=== PATIENT | female | born 1945 | race American Indian/Alaskan Native ===

== ENCOUNTER 2018-09-29 12:50 | Outpatient (CLI) | payer MEDICARE ==
--- NOTE | 2018-09-29 14:57 | Ultrasound Report ---
ULTRASOUND-GUIDED NEEDLE CORE BIOPSY Left BREAST WITH CLIP PLACEMENT CLINICAL: Abnormal left mammogram. Left breast ultrasound demonstrated a small irregular mass in the 6:00 position, anterior depth, as well as abnormally enlarged lymph node in the axillary tail/axillar y region. FINDINGS: The procedure was explained to the patient and informed consent was obtained. Ultrasound demonstrated the previously identified mass in the 6:00 position, periareolar location, as well as enlarged axillary lymph node.. I marked the breast with a felt tip marker and a timeout was called. The skin was prepped with chlorh exidine and anesthetized with 1% lidocaine. Needle core biopsy was performed through small dermatotomy using ultrasound guidance, 2% lidocaine wi th epinephrine for deep anesthesia and a 14-gauge Achieve biopsy device. 3 cores were obtained and pl aced in formalin. A clip was deployed within the lesion. The patient tolerated the procedure well and there were no apparent convocations. Hemostasis was achi eved with minimal effort and a sterile dressing was applied. A post procedure mammogram demonstrated concordant clip deployment. She left the department in good c ondition and was given instructions for wound care and follow-up. IMPRESSION: Uncomplicated ultrasound guided needle core biopsy with clip placement left breast 6:00, periareolar location. Signer Name: Rachele Kay MD Signed: 09/29/2018 2:53 PM Workstation Name: [id number]
--- NOTE | 2018-09-29 15:02 | Mammography Report ---
POST PROCEDURE LEFT DIGITAL DIAGNOSTIC MAMMOGRAM WITH CAD, 09/29/2018 INDICATION: Patient is status post biopsy of a small mass in the left breast 6:00, anterior depth, as well as an enlarged lymph node in the left axillary tail/axillary region. TECHNIQUE: Digital left mammographic imaging was performed. COMPARISON: Prior mammogram, 09/06/2018 FINDINGS: Breast Density: There are scattered areas of fibroglandular density. There are 2 clips seen in the 6:00 position of the left breast, periareolar position. The 2 clips do correspond to the small nodule noted on recent mammogram. Additionally, there is a clip identified in an enlarged lymph node within the axillary tail region. IMPRESSION: Postprocedure mammogram for clip placement documents appropriate positioning of clips wit hin the periareolar mass at 6:00, as well as appropriate clip placement within the enlarged left axil eliceo lymph node. A "normal" or negative report should not discourage follow up or biopsy of a clinically significant f inding. A written summary of these findings will be mailed to the patient. The patient will be entered into a mammography reporting system which will generate a reminder letter for the patient's next appointmen t at the appropriate interval. FURTHER INFORMATION: According to the [employer], yearly mammograms are recommend ed starting at age 40 and continuing as long as a woman is in good health. Breast MRI is recommended for women with an approximately 20-25% or greater lifetime risk of breast cancer, including women wi th a strong family history of breast or ovarian cancer and women who have been treated for Hodgkin's disease. Signer Name: Rachele Kay MD Signed: 09/29/2018 2:57 PM Workstation Name: [id number]
--- NOTE | 2018-09-29 16:42 | Ultrasound Report ---
ULTRASOUND-GUIDED NEEDLE CORE BIOPSY lLEFT AXILLARY LYMPH NODE WITH CLIP PLACEMENT CLINICAL: Recent ultrasound demonstrated abnormally enlarged left axillary lymph node. FINDINGS: The procedure was explained to the patient and informed consent was obtained. Ultrasound demonstrated the previously identified large lymph node in the left axillary tail/axilla. I marked the breast with a felt tip marker and a timeout was called. The skin was prepped with chlorh exidine and anesthetized with 1% lidocaine. Needle core biopsy was performed through small dermatotomy using ultrasound guidance, 2% lidocaine wi th epinephrine for deep anesthesia and a 14-gauge Achieve biopsy device. 3 cores were obtained and pl aced in formalin. A clip was deployed within the lesion. The patient tolerated the procedure well and there were no apparent convocations. Hemostasis was achi eved with minimal effort and a sterile dressing was applied. A post procedure mammogram demonstrated concordant clip deployment. She left the department in good c ondition and was given instructions for wound care and follow-up. IMPRESSION: Uncomplicated ultrasound guided needle core biopsy with clip placement left axilla. Signer Name: Rachele Kay MD Signed: 09/29/2018 4:38 PM Workstation Name: [id number]
== END 2018-09-29 12:51 | disposition home or self-care (01) ==
LOC: SPVWC 12:50
PROVIDERS: ATTEND Surgery
DX: C50.312 Malignant neoplasm of lower-inner quadrant of left female breast (principal); C77.3 Secondary and unspecified malignant neoplasm of axilla and upper limb lymph nodes; Z17.0 Estrogen receptor positive status [ER+]
CPT/HCPCS: 38505; 76942; 88305; 88341; 88342

== ENCOUNTER 2018-10-19 09:00 | Outpatient (CLI) | payer MEDICARE ==
--- NOTE | 2018-10-20 10:16 | Magnetic Resonance Report ---
BILATERAL BREAST MR WITHOUT AND WITH GADOLINIUM INDICATION: Newly diagnosed left breast cancer. She had an ultrasound-guided needle biopsy of a left breast mass at 6:00 1 cm from the nipple measuring 6 x 7 x 4 mm. Pathology: Invasive mammary carcino ma with lobular features, grade 3, ER 100%, UT 1% and HER-2 negative with Ki-67 25%. On the same day she had an ultrasound-guided needle biopsy of a left axillary lymph node which was positive for poorl y differentiated metastatic carcinoma consistent with a breast primary. COMPARISONS: Mammograms from 09/29/2018 and 09/27/2018 and left breast ultrasound from 09/29/2018 and 09/10 TECHNIQUE: Axial 1.0 mm T1 without, axial high-resolution 2.0 mm T2 and axial 1.0 mm dynamic vibrant high-resolution postcontrast T1 fat saturation sequences on a 1.5 Marilyn magnet. The examination was p erformed with an 8-channel dedicated [place] breast coil. Post-processing with CAD and subtraction was performed on an [employer] workstation. 18.0 cc of MultiHance was injected without incident for the c ontrast portion of the exam. Consent was obtained prior to the administration of the contrast. FINDINGS: RIGHT BREAST: Minimal background parenchymal enhancement. No mass or suspicious enhancement. No suspi cious lymph nodes. LEFT BREAST: Minimal background parenchymal enhancement. Lesion 1 (known cancer) is an irregular enha ncing mass at 5-6 o'clock 3.4 cm from the nipple measuring 19.3 x 11.0 x 9.5 mm. It demonstrates hete rogeneous enhancement with mixed kinetics, 80% peak enhancement and 7% type III washout. Lesion 2 is a highly suspicious mass is identified at 6:00 0.1 cm from the nipple and approximately 3 cm posterio r to the known cancer. It measures 16.4 x 11.3 x 8.6 mm and demonstrates heterogeneous enhancement wi th mixed kinetics, 147% peak enhancement and 27% type III washout. Lesion 3 is an highly suspicious m ass or conglomerate of 3 tiny masses at 6:00 2.7 cm from the nipple measures 10.3 x 4.4 x 4.1 mm. It demonstrates heterogeneous enhancement with mixed kinetics, 97% peak enhancement and 8% type III wash out. The span of lesions from Lesion 2 to Lesion 3 measures approximately 6 cm. No other mass or susp icious enhancement. Several suspicious left axillary lymph nodes. The largest contains a biopsy clip and measures 1.8 cm maximum. No suspicious internal mammary lymph nodes. IMPRESSION: 1. Known left breast cancer and at least 2 additional highly suspicious lesions in the same quadrant which span approximately 6 cm anterior to posterior. The known cancer measures significantly larger b y MRI than by either ultrasound or mammography. 2. Recommend targeted left breast ultrasound and needle biopsy of additional suspicious lesions if th ey are identified by ultrasound. MRI guided biopsy would also be possible if these lesions are not id entified by ultrasound. BI-RADS Category 6 Known Cancer Signer Name: Denis Florence MD Signed: 10/20/2018 10:11 AM Workstation Name: [id number]
== END 2018-10-19 09:01 | disposition home or self-care (01) ==
LOC: SPVIMAG 09:00
PROVIDERS: ATTEND Surgery
DX: C50.512 Malignant neoplasm of lower-outer quadrant of left female breast (principal)
CPT/HCPCS: A9577; C8908; 77049

== ENCOUNTER 2018-11-03 12:29 | Outpatient (CLI) | payer MEDICARE ==
--- NOTE | 2018-11-03 13:35 | XRay Report ---
CHEST 2 VIEWS INDICATION: PRE-OP CLEARANCE/BREAST CA. COMPARISON: None. FINDINGS: Support devices: None. Heart: Normal. Pulmonary vasculature: Normal. Lungs/pleura: Normally expanded and clear lungs. No pleural effusion. No pneumothorax. Additional findings: Exaggerated thoracic kyphosis and multilevel degenerative spondylosis of the tho racic spine. No acute spine fracture.. IMPRESSION: 1. No acute findings. Signer Name: Denis Florence MD Signed: 11/03/2018 1:30 PM Workstation Name: [id number]
== END 2018-11-03 12:30 | disposition home or self-care (01) ==
LOC: SPVIMAG 12:29
PROVIDERS: ATTEND Internal Medicine
DX: Z01.818 Encounter for other preprocedural examination (principal); M47.814 Spondylosis without myelopathy or radiculopathy, thoracic region
CPT/HCPCS: 71046

== ENCOUNTER 2018-12-30 10:12 | Day surgery (SDC) | payer MEDICARE ==
[~2018-12-30 10:12] MED LIST: BUPIVACAINE/PF (0.25%) 2.5 MG/ML 30 ML VIAL INFILTRATI ONE; HEPARIN 10,000 UNITS/10 ML VIAL ONE; LIDOCAINE (1%) 10 MG/1 ML VIAL 20 ML MDV ONE; SODIUM CHLORIDE 0.9% 100 ML ONE; ceFAZolin/Water 2 GM/20 ML 2 GM/20 ML SYRINGE IV SCH
[2018-12-30 11:13] LABS: Basophils # (Auto) 0.1 K/mm3 (0.0-0.1); Basophils % (Auto) 1.3 % (0.0-1.8); Eosinophils # (Auto) 0.2 K/mm3 (0.0-0.4); Eosinophils % (Auto) 2.7 % (0.0-4.3); Hematocrit 42.2 % (30.3-42.9); Hemoglobin 13.8 gm/dl (10.1-14.3); Lymphocytes # (Auto) 2.7 K/mm3 (1.2-5.4); Lymphocytes % (Auto) 40.3 % (13.4-35.0); Mean Corpuscular HGB Conc 33 % (30-34); Mean Corpuscular Volume 89 fl (79-97); Monocytes # (Auto) 0.8 K/mm3 (0.0-0.8); Monocytes % (Auto) 11.6 % (0.0-7.3); Platelet Count 273 K/mm3 (140-440); Red Blood Count 4.72 M/mm3 (3.65-5.03); Red Cell Distribution Width 14.4 % (13.2-15.2)
[2018-12-30] MEDS ORDERED: MIDAZOLAM 2 MG/2 ML INJ IV ONE (11:20)
[2018-12-30] MEDS ORDERED: HYDROmorphone 1 MG/1 ML INJ IV PRN (11:29)
[2018-12-30] MEDS ORDERED: ONDANSETRON 4 MG/2 ML INJ IV PRN (11:29)
--- NOTE | 2018-12-30 11:29 | Anesthesia Consultation ---
Anesthesia Consult and Med Hx Date of service: 12/30/18 - Airway Anesthetic Teeth Evaluation: Good ROM Head & Neck: Adequate Mental/Hyoid Distance: Adequate Mallampati Class: Class II Intubation Access Assessment: Good - Pulmonary Exam CTA: Yes - Cardiac Exam Cardiac Exam: RRR - Pre-Operative Health Status ASA Pre-Surgery Classification: ASA3 Proposed Anesthetic Plan: MAC (PMR on chronic steroids, HTN, Obesity , Breast Ca for GA) - Pulmonary Hx Smoking: Yes (QUIT 1988) Hx Asthma: Yes (RESCUE INHALER, MAINTENANCE INHALER; LAST ATTACK FEB 2018) Hx Sleep Apnea: Yes - Cardiovascular System Hx Hypertension: Yes (SINCE AGE 56) - Central Nervous System Hx Psychiatric Problems: No - Other Systems Hx Alcohol Use: No Hx Substance Use: No Hx Cancer: Yes Hx Obesity: Yes
--- NOTE | 2018-12-30 11:29 | Anesthesia Day of Surgery ---
Anesthesia Day of Surgery - Day of Surgery Patient Examined: Yes Patient H&P Reviewed: Yes Patient is NPO: Yes
[2018-12-30] MEDS ORDERED: PROPOFOL 200 MG/20 ML VIAL IV ONE (11:56)
[2018-12-30] MEDS ORDERED: LACTATED RINGERS 1,000 ML IV SCH (12:00)
[2018-12-30] MEDS ORDERED: LIDOCAINE MPF (2%) 20 MG/1 ML VIAL 5 ML ONE (12:01)
[2018-12-30] MEDS ORDERED: fentaNYL 100 MCG/2 ML INJ ONE (12:01)
[2018-12-30] MEDS ORDERED: BUPIVACAINE/PF (0.25%) 2.5 MG/ML 30 ML VIAL INFILTRATI ONE (12:58)
[2018-12-30] MEDS ORDERED: LIDOCAINE (1%) 10 MG/1 ML VIAL 20 ML MDV INFILTRATI ONE (12:58)
[2018-12-30] MEDS ORDERED: HEPARIN 10,000 UNITS/10 ML VIAL IV ONE (12:59)
[2018-12-30] MEDS ORDERED: SODIUM CHLORIDE 0.9% IRR 1,500 ML BOTTLE IR ONE (13:00)
--- NOTE | 2018-12-30 13:15 | Short Stay Summary ---
Short Stay Documentation Date of service: 12/30/18 - History Principal diagnosis: left breast cancer H&P: obtained from office - Allergies and Medications Current Medications: Allergies meperidine [From Demerol] Allergy (Verified 12/29/18 16:17) Anaphylaxis NSAIDS (Non-Steroidal Anti-Inflamma Allergy (Verified 12/29/18 16:17) GI Bleeding shellfish derived Allergy (Verified 12/29/18 16:17) Anaphylaxis Home Medications Medication Instructions Recorded Confirmed Last Taken Type Albuterol Sulfate [Proair 90 mcg IH Q4H PRN 11/04/18 12/29/18 12/29/18 History Respiclick] Colchicine 0.6 mg PO BID PRN 11/04/18 12/29/18 12/29/18 History Famotidine [Pepcid] 20 mg PO BID PRN 11/04/18 12/29/18 12/29/18 History Fluticasone Propion/Salmeterol 1 each IH BID 11/04/18 12/29/18 12/29/18 History [Wixela 250-50 Inhub] Meclizine [Antivert] 25 mg PO TID PRN 11/04/18 12/29/18 12/29/18 History Olmesartan/Amlodipin/Hcthiazid 1 each PO QDAY 11/04/18 12/29/18 12/29/18 History [Tribenzor 40-5-25 mg Tablet] Prednisone [predniSONE (Jhonatan) ER 5 mg PO QDAY 11/04/18 12/29/18 12/29/18 History TAB] oxyCODONE /ACETAMINOPHEN [Percocet 1 tab PO Q6HR PRN #20 tablet 11/11/18 12/29/18 12/29/18 Rx 5/325] Active Medications Hydromorphone HCl (Dilaudid) 0.25 mg IV Q10MIN PRN PRN Reason: Pain, Moderate (4-6) Stop: 12/30/18 22:00 Cefazolin Sodium (Ancef/Sterile Water 2 Gm/20 Ml) 2 gm in 20 mls @ 40 mls/hr IV PREOP RITA; Protocol Stop: 12/30/18 23:00 Lactated Ringer's (Lactated Ringers) 1,000 mls @ 100 mls/hr IV DIRECT RITA Last Admin: 12/30/18 11:31 Dose: 100 mls/hr Documented by: Ondansetron HCl (Zofran) 4 mg IV ONCE PRN PRN Reason: Nausea And Vomiting Stop: 12/30/18 16:00 - Brief post op/procedure progress note Date of procedure: 12/30/18 Pre-op diagnosis: left breast cancer Post-op diagnosis: same Procedure: placement of right internal jugular port with mindray ultrasound guidance Anesthesia: MAC, local Findings: good placement of port without PTX. No ectopy on tele monitor Surgeon: NICHOLE FULTON Estimated blood loss: minimal Pathology: none Condition: stable - Hospital course Hospital course: Pt observed in PACU and discharged to home in stable condition. - Disposition Condition at discharge: Good Disposition: DC-01 TO HOME OR SELFCARE Short Stay Discharge Plan Activity: no restrictions Diet: regular Wound: open to air, per your surgeon's advice Additional Instructions: SEE PRINTED DC INSTRUCTIONS Follow up with: CAREY JOSHI MD [Primary Care Provider] - 7 Days NICHOLE FULTON DO [Staff Physician] - 10 Days Prescriptions: HYDROcodone/APAP 5-325 [[place] 5/325] 1 each PO Q6H PRN #10 tablet PRN Reason: Pain
[2018-12-30] MEDS ORDERED: HYDROcodone/ACETAMINOPHEN 5-325 MG TAB PO PRN (13:28)
--- NOTE | 2018-12-30 14:09 | Fluoroscopy Report ---
FLUOROSCOPY CENTRAL VENOUS DEVICE PLACEMENT INDICATION: BREAST CANCER. Awkvep-x-Ymsq insertion. COMPARISON: None FINDINGS: Support devices: Right IJ Jhrjvd-x-Pgua has been inserted which terminates in the lower SVC. Heart: Within normal limits. Lungs/Pleura: No acute air space or interstitial disease. No pneumothorax. Additional findings: 17 seconds of fluoroscopy time was utilized by the surgeon. IMPRESSION: No acute findings. Good placement of a right Hkgppn-e-Wzff. Signer Name: Fan Bland Jr, MD Signed: 12/30/2018 2:05 PM Workstation Name: [id number]
[2018-12-30 14:55] VITALS: BP 119/63
--- NOTE | 2018-12-30 15:02 | Post Anesthesia Evaluation ---
- Post Anesthesia Evaluation Patient Participated: Yes Airway Patent: Yes Stable Respiratory Function: Yes Nausea/Vomiting: No Temp > 96.8F: Yes Pain Manageable: Yes Adequeate Hydration: Yes Anesthesia Complications: No Block Receding Appropriately: Not Applicable Patient on Ventilator: No
--- NOTE | 2019-01-01 12:10 | Operative Report ---
PREOPERATIVE DIAGNOSIS: Left breast cancer. POSTOPERATIVE DIAGNOSIS: Left breast cancer. PROCEDURE: Placement of right internal jugular port with Mindray ultrasound guidance. ANESTHESIA: MAC local. FINDINGS: Good placement of port without pneumothorax. No ectopy on tele monitor. SURGEON: Willa Alexis DO ESTIMATED BLOOD LOSS: Minimal. PATHOLOGY: None. CONDITION ON DISPOSITION: The patient is stable to PACU. HISTORY OF PRESENT ILLNESS AND INDICATIONS: The patient is a 73-year-old female, who presented to the office as a referral for port placement. She is a candidate for chemotherapy, which was starting the following week and her oncologist is Dr. Eckert. The patient has already undergone a left-sided mastectomy with axillary lymph node dissection. All risks, benefits and alternatives to surgery were discussed with the patient and questions answered. Consent was obtained. PROCEDURE IN DETAIL: The patient was identified preoperative area, taken back to the operating room, placed on the operating table in supine position. After anesthesia was induced, the right arm was tucked, and all bony prominences were padded appropriately. The right chest and neck were prepped and draped in the usual sterile fashion. Timeout was performed. The patient was placed in Trendelenburg position and local anesthetic was infiltrated at the intended puncture site. Using Mindray ultrasound guidance, the right subclavian vein was identified and attempt was made to access it 2 times. The vein could not be accessed and therefore decision was made to perform a right internal jugular vein access. The right internal jugular vein was visualized on ultrasound and accessed on the first stick. There was return of dark red nonpulsatile blood. A wire was threaded without resistance and position confirmed using fluoroscopy. The wire was affixed to the drapes with a hemostat. Local anesthetic was infiltrated into the skin in the right upper chest and a 4 cm transverse incision was made using a 15 blade. The dissection was carried down through the skin and subcutaneous tissue using Bovie electrocautery until the prepectoral fascia was encountered. A subcutaneous pocket was then created for the port using combination of blunt dissection and electrocautery. Hemostasis was achieved along the way. Now, the catheter was then tunneled from the pocket to the wire and the tract dilated over the wire under fluoroscopic guidance. The catheter was then placed through the breakaway catheter sheath and the break-away catheter removed in the usual fashion. The catheter was pulled back under fluoroscopic guidance until the tip was seen to lay in the superior vena cava. There was no ectopy on the monitor per Anesthesia. The catheter was then cut to size and the port assembled in the usual fashion. Port was sutured to the prepectoral fascia in two locations using 2-0 Vicryl interrupted sutures. The port was tested with heparinized saline and returned dark red blood easily and also flushed easily. The port was then instilled with 3000 units of heparin. The pocket was irrigated with saline and hemostasis ensured. The deep dermal layer was then closed with interrupted 3-0 Vicryl suture. The skin incisions were closed with 4-0 Monocryl subcuticular stitches and skin glue. At the end of the case, all sponge, instrument, sharp counts were correct x 2. A postoperative chest x-ray showed good position of the port without pneumothorax. The patient was taken to PACU in stable condition. JOB# [id number] ANNA/JOSH
== END 2018-12-30 14:55 | disposition home or self-care (01) ==
LOC: OR 10:12
PROVIDERS: ATTEND Surgery
DX: C50.912 Malignant neoplasm of unspecified site of left female breast (principal); I10 Essential (primary) hypertension; J45.909 Unspecified asthma, uncomplicated; G47.30 Sleep apnea, unspecified; K21.9 Gastro-esophageal reflux disease without esophagitis; E66.9 Obesity, unspecified; M19.90 Unspecified osteoarthritis, unspecified site; Z80.42 Family history of malignant neoplasm of prostate; Z91.013 Allergy to seafood; Z88.8 Allergy status to other drugs, medicaments and biological substances; Z79.899 Other long term (current) drug therapy; Z87.891 Personal history of nicotine dependence; Z90.49 Acquired absence of other specified parts of digestive tract; Z90.12 Acquired absence of left breast and nipple; Z98.891 History of uterine scar from previous surgery; Z98.890 Other specified postprocedural states
CPT/HCPCS: 36415; 36561; 77001; 84132; 85025; C1788; J0690; J1644; J2250; J2704; J3010; J7120